=== PATIENT | male | born 1950 | race Caucasian/White ===

== ENCOUNTER 2023-07-12 14:05 | Outpatient (CLI) | payer OTHER, SELFPAY ==
[2023-07-12 16:21] LABS: Anion Gap 9 mmol/L (8-16); Blood Urea Nitrogen 18 mg/dL (9-20); Calcium 10.6 mg/dL (8.4-10.2); Carbon Dioxide 25 mmol/L (22-30); Chloride 105 mmol/L (98-107); Cholesterol 274 mg/dL (0-200); Estimated Glomerular Filt Rate > 60; Glucose 112 mg/dL (65-110); HDL Direct 45 mg/dL; Potassium 4.5 mmol/L (3.4-5.0); Sodium 139 mmol/L (137-145); Triglycerides 77 mg/dL (<150)
[2023-07-12 16:32] LABS: LDL Cholesterol Direct 190 mg/dL
== END 2023-07-12 14:06 | disposition home or self-care (01) ==
PROVIDERS: PCP Family Medicine; Visit Provider Family Medicine
DX: E78.5 Hyperlipidemia, unspecified (principal); Z76.89 Persons encountering health services in other specified circumstances
CPT/HCPCS: 36415; 80048; 80061

== ENCOUNTER 2023-07-30 08:33 | Outpatient (CLI) | payer OTHER, SELFPAY ==
[2023-07-30 09:27] LABS: Hemoglobin A1C 6.3 % (<5.7)
[2023-08-01 13:24] LABS: Ionized Calcium 5.3 mg/dL (4.7-5.5)
[2023-08-08 17:02] LABS: Parathyroid Hormone Related Pr 11 pg/mL (11-20)
== END 2023-07-30 08:34 | disposition home or self-care (01) ==
LOC: ANHLAB 08:35
PROVIDERS: PCP Family Medicine; Visit Provider Family Medicine
DX: R73.9 Hyperglycemia, unspecified (principal); R73.09 Other abnormal glucose; E83.52 Hypercalcemia; E78.5 Hyperlipidemia, unspecified
CPT/HCPCS: 36415; 82330; 83036; 83519

== ENCOUNTER 2024-01-17 14:00 | Outpatient (CLI) | payer OTHER, SELFPAY ==
[2024-01-17 14:34] LABS: Hematocrit 44.8 % (42.0-52.0); Hemoglobin 14.4 g/dL (14.0-18.0); Mean Corpuscular HGB Conc 32.1 g/dl (32-36); Mean Corpuscular Hemoglobin 29.9 pg (26-34); Mean Corpuscular Volume 92.9 fl (80-100); Mean Platelet Volume 9.8 fl (7.4-10.4); Platelet Count Result 216 k/mm3 (150-375); Red Blood Count 4.82 M/mm3 (4.6-6.20); Red Cell Distribution Width 13.2 % (11.5-14.5); White Blood Count 6.2 K/mm3 (4.5-10.0)
[2024-01-17 14:52] LABS: Hemoglobin A1C 6.1 % (<5.7)
[2024-01-17 14:58] LABS: Alanine Aminotransferase 15 U/L (6-50); Albumin Level 4.5 g/dL (3.5-5.1); Alkaline Phosphatase 53 U/L (38-126); Anion Gap 7 mmol/L (4-12); Aspartate Amino Transferase 23 U/L (17-59); Bilirubin,Total 0.4 mg/dL (0.2-1.3); Blood Urea Nitrogen 23 mg/dL (9-20); Calcium 10.2 mg/dL (8.4-10.2); Carbon Dioxide 28 mmol/L (22-30); Chloride 104 mmol/L (98-107); Cholesterol 157 mg/dL (0-200); Estimated Glomerular Filt Rate > 60; Glucose 110 mg/dL (65-110); HDL Direct 54 mg/dL; Potassium 4.7 mmol/L (3.4-5.0); Sodium 139 mmol/L (137-145); Triglycerides 55 mg/dL (<150)
[2024-01-17 15:09] LABS: LDL Cholesterol Direct 82 mg/dL
[2024-01-17 15:26] LABS: Prostate Specific Antigen 0.1 ng/mL (< OR = 4.0)
== END 2024-01-17 14:01 | disposition home or self-care (01) ==
LOC: ANHLAB 14:06
PROVIDERS: PCP Family Medicine; Visit Provider Family Medicine
DX: Z12.5 Encounter for screening for malignant neoplasm of prostate (principal); E78.5 Hyperlipidemia, unspecified; E83.52 Hypercalcemia; R73.03 Prediabetes; R73.9 Hyperglycemia, unspecified
CPT/HCPCS: 36415; 80053; 80061; 83036; 84153; 85027; G0103

== ENCOUNTER 2024-01-30 08:54 | Outpatient (CLI) | payer OTHER, SELFPAY ==
--- NOTE | ~2024-01-30 | CT_ITS ---
EXAMINATION: CT lung screening DATE: 01/30/2024 09:40 INDICATION: Z87.891 - Personal history of nicotine dependence TECHNIQUE: Computed tomography (CT) of the chest was performed without intravenous contrast. Addition al 3D reconstructions utilizing coronal maximum intensity projection (MIP) were performed. Automated exposure control and iterative reconstruction technique were employed. The dose-length product was 30 4.31 mGy-cm. COMPARISON: None FINDINGS: Mild emphysema. There are couple 1-2 mm nodule in the right upper lobe. No pneumonia, pulmonary edema , pleural effusion or pneumothorax. Heart size is normal. Atherosclerotic coronary artery calcific lo cation. Aortic valve calcification. No pericardial effusion. Thoracic aorta is normal in caliber. No pathologically enlarged thoracic lymphadenopathy. Partially visualized 2.5 cm low-attenuation cyst in the left kidney. Moderate thoracic spondylosis. IMPRESSION: 1. Lung-RADS category 2: Benign appearance or behavior. Continue annual screening with noncontrast lo w-dose chest CT in 12 months. Reviewed, dictated and finalized at location B. IMPRESSION: 1. Lung-RADS category 2: Benign appearance or behavior. Continue annual screeni ng with noncontrast low-dose chest CT in 12 months.
== END 2024-01-30 08:55 | disposition home or self-care (01) ==
LOC: ANHIMG 08:55
PROVIDERS: PCP Family Medicine; Visit Provider Family Medicine
DX: Z12.2 Encounter for screening for malignant neoplasm of respiratory organs (principal); Z87.891 Personal history of nicotine dependence
CPT/HCPCS: 71271

== ENCOUNTER 2024-07-31 08:08 | Outpatient (CLI) | payer OTHER, SELFPAY ==
--- OUTSIDE RECORDS SUMMARY | 2024-07-31 08:20 | XMS_ITS | Clinical Summary ---
Author Organization [facility] Address [address] [place] [id number] Care Team Providers Care Fuel Handler Name Role Phone Kayode Avalos MD Primary Care Provider Bello Mars MD Unavailable [phone] Allergies No known active allergies Medications meloxicam (MOBIC) 15 MG tablet Take 15 mg by mouth daily. Active Active Problems Problem Noted Date Diagnosed Date Morbid obesity 05/15/2023 History of colon polyps 04/27/2022 Impaired fasting glucose 04/27/2022 History of prostate cancer 03/31/2019 Dyslipidemia 03/09/2014 Arthritis 02/20/2014 Overview (03/31/2019): Description: pain in hands, wrists- Advil PRN Resolved Problems Problem Noted Date Diagnosed Date Resolved Date Routine general medical exam ination at a health care facility 05/15/2023 05/21/2023 Right foot pain 03/31/2019 05/15/2023 Plantar fasciitis 03/04/2014 05/15/2023 Routine general medical exam ination at a health care facility 02/17/2013 05/01/2022 Immunizations Name Administration Dates Next Due Flublok (Quadrivalent) 03/31/2019 Fluzone High Dose - >Age 65 (Prefilled Syringe) 03/09/2020 Influenza (Generic) 03/04/2014 Influenza Adult (Generic) 02/21/2022,02/28/2021 PFIZER COVID-19 (ORIGINAL FO RMULATION, PURPLE CAP) mRNA, LNP-S, PF, 30 MCG/0.3 ML DOSE 02/21/2022 Pneumococcal (Pneumovax 23) 03/01/2021, 0,05/01/2019 Tdap (Generic) 03/18/2010 Family History Medical History Relation Comments Cancer Father Esophageal Cance r Relation Status Comments Father Mother Social History Tobacco Use Types Packs/Day Years Used Date Smoking Tobacco: Former Smokeless Tobacco: Never Alcohol Use Standard Drinks/Week Comments Yes 0 (1 standard drink = 0.6 oz pur e alcohol) AUDIT-C Answer Date Recorded Frequency of Alcohol Consumption Monthly or less 03/31/2019 Average Number of Drinks Not on file 019 Frequency of Binge Drinking Not on file 03/21 Sex and Gender Information Value Date Recorded Sex Assigned at Not on file Legal Sex Male 5:38 PM CDT Gender Identity Not on file Sexual Orientation Not on file Last Filed Vital Signs Vital Sign Reading Time Taken Comments Blood Pressure 136/82 05/15/2023 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 Pulse 66 04/25/2021 7:47 AM CUSTODIAL LABORER Temperature - - Respiratory Rate - - Oxygen Saturation - - Inhaled Oxygen Concentration - - Weight 121.1 kg (267 lb) 05/15/2023 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 Height 175.3 cm (5' 9 ) 05/15/2023 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 Body Mass Index 39.43 05/15/2023 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 Plan of Treatment Health Maintenance Due Date Last Done Comments Hepatitis C 1968 Zoster Vaccines (1 of 2) 2002 DTaP, Tdap and Td Vaccines (2 - Td or Tdap) 03/18/2020 03/18/2010 Annual Medicare Wellness Visit 05/02/2020 05/01/2019 Pneumococcal Vaccine: 65+ Years (2 of 2 - PCV) 03/01/2022 03/01/2021, 03/09/2020, 05/01/2019 COVID-19 Vaccine ( season) 2024 02/21/2022, 04/18/2021, 09/16/2020, Additional history exists Influenza Adult (#1) 2024 02/21/2022, 02/28/2021, 03/09/2020, Additional history exists RSV Immunization or 60+ Years (1 - 1-dose 75+ series) 2027 Colorectal Cancer Screening Colonoscopy (10 Years) 06/30/2032 06/30/2022 Meningococcal B Vaccine Aged Out No l onger eligible based on patient's age to complete this topic Meningococcal Vaccine Aged Out No mejia osito eligible based on patient's age to complete this topic RSV Immunizations Under 20 Months Aged Out No longer eligible based on patient's age to complete this topic Procedures Procedure Name Priority Date/Time Associated Diagnosis Comments COLONOSCOPY GENERIC (SCAN ORDER) Routine 06/30/2022 from Last 3 Months or Most Recently Relevant to Health Maintenance Results * COLONOSCOPY (06/30/2022) us Kayode Avalos MD SCANNING Final Resul t HS ONBASE from Last 3 Months or Most Recently Relevant to Health Maintenance Insurance [employer] Care Teams Fuel Handler Relationship Specialty Start Date End Date Kayode Avalos MD [address] [id number] PCP - General FAMILY PRACTICE 03/31/19 Bello Mars MD [address] [phone] GASTROENTEROLOGY 05/02/22
[2024-07-31 08:46] LABS: Hematocrit 46.8 % (42.0-52.0); Hemoglobin 14.8 g/dL (14.0-18.0); Mean Corpuscular HGB Conc 31.6 g/dl (32-36); Mean Corpuscular Volume 91.6 fl (80-100); Mean Platelet Volume 9.9 fl (7.4-10.4); Platelet Count Result 241 k/mm3 (150-375); Red Blood Count 5.11 M/mm3 (4.6-6.20); Red Cell Distribution Width 13.4 % (11.5-14.5); White Blood Count 5.8 K/mm3 (4.5-10.0)
[2024-07-31 09:03] LABS: Alanine Aminotransferase 17 U/L (6-50); Albumin Level 4.4 g/dL (3.5-5.1); Alkaline Phosphatase 61 U/L (38-126); Anion Gap 7 mmol/L (4-12); Aspartate Amino Transferase 20 U/L (17-59); Bilirubin,Total 0.5 mg/dL (0.2-1.3); Blood Urea Nitrogen 9 mg/dL (9-20); Calcium 10.7 mg/dL (8.4-10.2); Carbon Dioxide 25 mmol/L (22-30); Chloride 108 mmol/L (98-107); Estimated Glomerular Filt Rate > 60; Glucose 123 mg/dL (65-110); Potassium 4.7 mmol/L (3.4-5.0); Sodium 140 mmol/L (137-145)
[2024-07-31 09:28] LABS: Vitamin D 25 Hydroxy 24.4 ng/mL
[2024-07-31 09:29] LABS: Prostate Specific Antigen 0.2 ng/mL (< OR = 4.0)
== END 2024-07-31 08:09 | disposition home or self-care (01) ==
PROVIDERS: PCP Family Medicine; Visit Provider Family Medicine
DX: R73.03 Prediabetes (principal); E66.9 Obesity, unspecified; E78.5 Hyperlipidemia, unspecified; E83.52 Hypercalcemia; Z12.5 Encounter for screening for malignant neoplasm of prostate; Z85.46 Personal history of malignant neoplasm of prostate; Z79.899 Other long term (current) drug therapy
CPT/HCPCS: 36415; 80053; 82306; 82607; 83036; 84153; 85027; G0103

== ENCOUNTER 2025-01-29 08:26 | Outpatient (CLI) | payer OTHER, SELFPAY ==
--- OUTSIDE RECORDS SUMMARY | 2025-01-29 08:58 | XMS_ITS | Patient Health Record ---
Author Organization [facility] Address [address] [place], [place] [id number] Care Team Providers Care Camp Housekeeper Name Role Phone ALY Myles Unavailable [phone] Kayode Avalos Unavailable Unavailable Reason For Referral No Information Plan Of Treatment No Information Insurance Providers Payer Name Payer Address Payer Phone Subscriber Number Group Number Insured Name Patient Relationship to Insured Coverage Start Date Coverage End Date [employer] [place] [phone] CHEO ROSARIO Self - patient is the insured
--- OUTSIDE RECORDS SUMMARY | 2025-01-29 08:58 | XMS_ITS | Clinical Summary ---
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 Pulse 66 04/25/2021 7:47 AM FLAME HARDENING MACHINE OPERATOR Temperature - - Respiratory Rate - - Oxygen Saturation - - Inhaled Oxygen Concentration - - Weight 121.1 kg (267 lb) 05/15/2023 7:57 AM FLAME HARDENING MACHINE OPERATOR Height 175.3 cm (5' 9) 05/15/2023 7:57 AM FLAME HARDENING MACHINE OPERATOR Body Mass Index 39.43 05/15/2023 7:57 AM FLAME HARDENING MACHINE OPERATOR Plan of Treatment Health Maintenance Due Date Last Done Comments Hepatitis C 1968 Zoster Vaccines (1 of 2) 2002 DTaP, Tdap and Td Vaccines (2 - Td or Tdap) 03/18/2020 03/18/2010 Annual Medicare Wellness Visit 05/02/2020 05/01/2019 Pneumococcal Vaccine: 50+ Years (2 of 2 - PCV) 03/01/2022 03/01/2021, 03/09/2020, 05/01/2019 COVID-19 Vaccine (2024- season) 2025 02/21/2022, 04/18/2021, 09/16/2020, Additional history exists RSV Immunization or 60+ [...] Kayode Avalos MD SCANNING Final Resul t [facility] ONBASE from Last 3 Months or Most Recently Relevant to Health Maintenance Insurance [employer] Care Teams Customer Success Manager Relationship Specialty Start Date End Date Kayode Avalos MD [address] [facility] [address] [place] [phone] PCP - General FAMILY PRACTICE 03/31/19 Bello Mars MD [address] [phone] GASTROENTEROLOGY 05/02/22
[2025-01-29 09:09] LABS: Hematocrit 45.8 % (42.0-52.0); Hemoglobin 14.5 g/dL (14.0-18.0); Immature Granulocyte Percent A 0.7 % (0-0.5); Lymphocytes Absolute Auto 1.66 K/mm3 (0.9-3.2); Mean Corpuscular HGB Conc 31.7 g/dl (32-36); Mean Corpuscular Hemoglobin 29.7 pg (26-34); Mean Corpuscular Volume 93.9 fl (80-100); Nucleated Red Blood Cells Absolute Auto 0.000 K/mm3 (0.0-0.012); Nucleated Red Blood Cells Perc 0.0 % (0.0-0.2); Platelet Count Result 227 k/mm3 (150-375); Red Blood Count 4.88 M/mm3 (4.6-6.20); White Blood Count 5.8 K/mm3 (4.5-10.0)
[2025-01-29 09:19] LABS: Hemoglobin A1C 6.2 % (<5.7)
[2025-01-29 09:31] LABS: Alanine Aminotransferase 14 U/L (6-50); Albumin Level 4.4 g/dL (3.5-5.1); Alkaline Phosphatase 67 U/L (38-126); Anion Gap 5 mmol/L (4-12); Aspartate Amino Transferase 20 U/L (17-59); Bilirubin,Total 0.4 mg/dL (0.2-1.3); Blood Urea Nitrogen 19 mg/dL (9-20); Calcium 10.0 mg/dL (8.4-10.2); Carbon Dioxide 29 mmol/L (22-30); Chloride 104 mmol/L (98-107); Estimated Glomerular Filt Rate > 60; Glucose 119 mg/dL (65-110); Potassium 4.7 mmol/L (3.4-5.0); Sodium 138 mmol/L (137-145); Total Protein 7.4 g/dL (6.3-8.2)
[2025-01-29 09:41] LABS: Parathyroid Intact 77.1 pg/mL (14.5-75.2)
[2025-01-29 10:25] LABS: Vitamin B12 307.0 pg/mL (239-931)
[2025-01-30 18:08] LABS: Calcium, Ionized 5.5 mg/dL (4.5-5.6)
== END 2025-01-29 08:27 | disposition home or self-care (01) ==
LOC: ANHLAB 08:35
PROVIDERS: PCP Family Medicine; Visit Provider Family Medicine
DX: E78.5 Hyperlipidemia, unspecified (principal); R73.03 Prediabetes; E83.52 Hypercalcemia; R73.9 Hyperglycemia, unspecified; E66.9 Obesity, unspecified; Z68.34 Body mass index [BMI] 34.0-34.9, adult; Z85.46 Personal history of malignant neoplasm of prostate
CPT/HCPCS: 36415; 80053; 82306; 82330; 82607; 83036; 83970; 85025

== ENCOUNTER 2025-02-18 08:13 | Outpatient (CLI) | payer OTHER, SELFPAY ==
--- NOTE | ~2025-02-18 | CT_ITS ---
EXAMINATION:CT lung screening DATE: 02/18/2025 08:33 INDICATION: Personal history of nicotine dependence. TECHNIQUE: Computed tomography (CT) of the chest was performed without intravenous contrast. Automated exposure control and iterative reconstruction technique were employed. The dose-length product (DLP) was 305.52 mGy-cm. COMPARISON: Chest CT 01/30/2024 FINDINGS: There is mild emphysema. There is a 2 mm nodule in right upper lobe. There is mild atelectasis bilaterally. No pleural effusion. The heart size is normal. There are coronary artery calcifications. No pericardial effusion. There is a small sliding hiatal hernia. There is severe thoracic spondylosis. There is mild chronic anterior wedging of multiple vertebral bodies. IMPRESSION: 1. Lung-RADS category 2: Benign appearance or behavior. Continue annual screening with noncontrast low-dose chest CT in 12 months. Reviewed, dictated and finalized at location E. IMPRESSION: 1. Lung-RADS category 2: Benign appearance or behavior. Continue annual screeni ng with noncontrast low-dose chest CT in 12 months.
== END 2025-02-18 08:14 | disposition home or self-care (01) ==
LOC: MICIMG 08:15
PROVIDERS: PCP Family Medicine; Visit Provider Family Medicine
DX: Z12.2 Encounter for screening for malignant neoplasm of respiratory organs (principal); Z87.891 Personal history of nicotine dependence
CPT/HCPCS: 71271